=== PATIENT | female | born 1970 | race Caucasian/White ===

== ENCOUNTER 2019-05-04 05:24 | Emergency (ER) | payer OTHER, SELFPAY ==
[2019-05-04 05:36] VITALS: BP 131/88; PULSE 84; RESP 18; TEMP 36.8; O2SAT 99; BMI 21.9
--- NOTE | 2019-05-04 05:44 | W.ED.HA ---
HPI - Headache General: Chief Complaint: Headache Stated Complaint: HEAD ACHE Time Seen by Provider: 05/04/19 05:43 History of Present Illness: HPI Narrative: 49-year-old female presents with left-sided headache with photophobia photophobia and nausea. She has had migraines multiple times in the past this is similar to what she has had previously she usually uses Imitrex for migraine relief but it has not been relieving her headaches. Associated symptoms: Deny chest pain, fever(s), malaise, nausea, rash or vomiting Review of Systems Const: Denies: fever, chills, body aches, change in appetite, fatigue or malaise ENMT: Denies: throat pain, ear pain, nasal discharge or nasal congestion Card: Denies: chest pain, edema, shortness of breath on exertion or shortness of breath when lying down Resp: Denies: shortness of breath, productive cough or non-productive cough GI: Denies: abdominal pain, nausea, vomiting, vomiting blood, coffee grounds in vomit, diarrhea, constipation, bloating, blood in stool or black tarry stool : Denies: flank pain, difficulty urinating, painful urination, urinary frequency or urinary urgency Skin/Breast: Denies: rash or itching Neuro: Reports: headache PFSH ED PFSH: Social History Smoking and tobacco status: never smoked Physical Exam Const: COMMON NORMALS: no apparent distress GENERAL APPEARANCE: cooperative and comfortable ORIENTATION/CONSCIOUSNESS: Yes awake, Yes oriented to person, Yes oriented to place and Yes oriented to time HENMT: COMMON NORMALS: normocephalic, head/scalp atraumatic, hearing grossly normal bilaterally, external ears normal, EAC's normal, TM's normal bilaterally, nasal mucous membranes and turbinates normal, moist oral mucous membranes and oropharynx normal HEAD & SCALP: normocephalic and atraumatic NOSE: nasal mucous membranes and turbinates normal EXTERNAL EAR: Yes external ears normal EXTERNAL AUDITORY CANAL: EAC's normal TYMPANIC MEMBRANE: TM's normal bilaterally Eye: COMMON NORMALS: PERRL, EOMs intact bilaterally, conjunctivae normal and no scleral icterus CONJUNCTIVA: Yes conjunctivae normal PUPIL: Yes PERRL Neck/C-Spine: COMMON NORMALS: full ROM, no lymphadenopathy, supple and no JVD Lymph: LYMPHATIC: no lymphadenopathy noted and no lymphedema noted Resp: COMMON NORMALS: normal respiratory effort, no retractions, no use of accessory muscles and clear to auscultation bilaterally AUSCULTATION: clear to auscultation bilaterally Cardio: COMMON NORMALS: no JVD, regular rate, regular rhythm and no murmurs RATE: regular rate RHYTHM: regular rhythm GI: COMMON NORMALS: soft to palpation and no hepatosplenomegaly AUSCULTATION: Yes normoactive bowel sounds PALPATION: Yes soft, No tender, No guarding and Yes no hepatosplenomegaly Extremity: COMMON NORMALS: normal to inspection, normal capillary refill, no clubbing, cyanosis or edema, no calf tenderness and no pedal edema Neuro: SENSORIUM/ORIENTATION: Yes oriented to person, Yes oriented to place and Yes oriented to time Skin: COMMON NORMALS: no rashes or lesions noted GENERAL SKIN EXAM: no rashes or lesions noted Course ED course: Pt is improved. Will discharge home. Follow-up with primary care physician Vital Signs: Vital signs: Vital Signs Temperature 98.2 F 05/04/19 05:36 Pulse Rate 78 05/04/19 07:25 Respiratory Rate 16 05/04/19 07:25 Blood Pressure 118/85 05/04/19 07:25 Pulse Oximetry 99 05/04/19 07:25 Discharge Plan Discharge Patient Disposition: Home, Self-Care Clinical Impression: Migraine Condition: Stable Prescriptions: New hydrocodone-acetaminophen 5-325 mg tablet 1 tab PO Q6H PRN (Reason: pain) 10 Days Qty: 15 RF: 0 promethazine 25 mg tablet 25 mg PO Q6H PRN (Reason: nausea and vomiting) Qty: 20 RF: 0 No Action cyclobenzaprine 10 mg Tablet 10 mg PO TID PRN (Reason: Pain) RF: 0 Neurontin 300 mg Capsule 300 mg PO DAILY RF: 0 tramadol 100 mg Tablet Extended Release 24 Hr 100 mg PO DAILY RF: 0 Discharge Orders: Discharge Order (Routine); Ordered 05/04/19 Ordered By: Carl Whitt Referrals: Darwin Keenan MD [Family Provider] - Discharge Diet: Usual diet Discharge Activity: Increase activity as tolerated Stand Alone Forms: Work/School Release Discharge Date/Time: 05/04/19 07:25 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
[2019-05-04 06:13] VITALS: BP 131/88; PULSE 80; RESP 18; O2SAT 100
[2019-05-04] MEDS: ketorolac 30 mg/mL INJ IVP (06:25)
[2019-05-04] MEDS: metoclopramide 5 mg/mL SDV 2 mL 10 MG IVP (06:28)
[2019-05-04] MEDS: sodium chloride 0.9% 1,000 ML 999 ML IV (06:33)
[2019-05-04] MEDS: valproic acid inj 500 MG in sodium chloride 0.9% 50 ML 55 MG IV (06:34)
[2019-05-04 07:25] VITALS: BP 118/85; PULSE 78; RESP 16; O2SAT 99
== END 2019-05-04 07:25 | disposition home or self-care (01) ==
PROVIDERS: Emergency Provider Family Medicine; Family Provider Family Medicine
DX: G43.909 Migraine, unspecified, not intractable, without status migrainosus (principal)
CPT/HCPCS: 96365; 96366; 96374; 96375; 99282; 99283; J1885; J2765; J7030

== ENCOUNTER → 2019-11-24 11:48 | Outpatient (BNVA) | payer OTHER, SELFPAY | PROVIDERS: Family Provider Family Medicine; Visit Provider Internal Medicine | DX: Z20.828 Contact with and (suspected) exposure to other viral communicable diseases (principal) | CPT/HCPCS: 87635 ==

== ENCOUNTER → 2019-12-16 08:58 | Outpatient (BNVA) | payer OTHER, SELFPAY | PROVIDERS: Family Provider Family Medicine; Visit Provider Internal Medicine | DX: R53.83 Other fatigue (principal); R76.8 Other specified abnormal immunological findings in serum; D86.9 Sarcoidosis, unspecified; R21 Rash and other nonspecific skin eruption; Z11.59 Encounter for screening for other viral diseases | CPT/HCPCS: 99203; 99204 ==

== ENCOUNTER 2019-12-19 16:25 | Outpatient (CLI) | payer OTHER, SELFPAY ==
[2019-12-19 17:17] LABS: Complement C3 89 mg/dL (90-180); Creatine Phosphokinase 58 U/L (26-192); Magnesium 2.1 mg/dL (1.7-2.3); Phosphorus 3.7 mg/dL (2.5-4.5)
[2019-12-19 17:26] LABS: Estradiol. 121.5 pg/mL
[2019-12-19 17:56] LABS: Erythrocyte Sedimentation Rate 9 mm/hr (0-15)
[2019-12-19 19:42] LABS: Ferritin 181 ng/mL (15-150); Iron 50 ug/dL (37-145)
[2019-12-19 19:47] LABS: Cortisol Random 6.89 ug/mL (2.47-19.5); Hepatitis B Core AB, Total Non-Reactive (Nonreactive); Hepatitis B Surface Antigen Non-Reactive (Nonreactive); Hepatitis C Virus Antibody Non-Reactive (Nonreactive); Parathyroid Hormone 37.8 pg/mL (15-65)
[2019-12-19 19:58] LABS: Calcium 9.4 mg/dL (8.5-10.5)
[2019-12-21 06:48] LABS: PROTEIN, TOTAL 6.4 g/dL (6.1-8.1)
[2019-12-21 07:47] LABS: T3 Total 142 ng/dL (76-181)
[2019-12-21 09:48] LABS: COMPLEMENT COMPONENT C3C 99 mg/dL (83-193); COMPLEMENT COMPONENT C4C 16 mg/dL (15-57)
[2019-12-21 12:17] LABS: Cyclic Citrullinated Peptide <16 UNITS
[2019-12-21 13:17] LABS: COMPLEMENT, TOTAL (CH50) >60 U/mL (31-60)
[2019-12-21 13:48] LABS: ALBUMIN 4.1 g/dL (3.8-4.8); ALPHA 1 GLOBULIN 0.3 g/dL (0.2-0.3); ALPHA 2 GLOBULIN 0.6 g/dL (0.5-0.9); BETA 1 GLOBULIN 0.4 g/dL (0.4-0.6); BETA 2 GLOBULIN 0.2 g/dL (0.2-0.5); GAMMA GLOBULIN 0.8 g/dL (0.8-1.7)
[2019-12-21 17:46] LABS: THYROID PEROXIDASE ANTIBODIES 10 IU/mL (<9)
[2019-12-21 18:47] LABS: HLA-B27 NEGATIVE (NEGATIVE)
[2019-12-22 04:39] LABS: Adrenocorticotropic Hormone 18 pg/mL (6-50)
[2019-12-22 14:38] LABS: CENTROMERE B ANTIBODY <1.0 NEG AI (<1.0 NEG); JO-1 ANTIBODY <1.0 NEG AI (<1.0 NEG); RNP ANTIBODY <1.0 NEG AI (<1.0 NEG); SCL-70 ANTIBODY <1.0 NEG AI (<1.0 NEG); SJOGREN'S ANTIBODY (SS-A) <1.0 NEG AI (<1.0 NEG); SM ANTIBODY <1.0 NEG AI (<1.0 NEG)
[2019-12-23 14:32] LABS: ANA PATTERN Nuclear, Speckled; ANA SCREEN, IFA POSITIVE (NEGATIVE); ANA TITER 1:40 titer
[2019-12-23 19:03] LABS: Tissue Transglutaminase IgA Ab 1 U/mL; Tissue transglutaminase Ab.IgG 14 U/mL
[2019-12-25 16:02] LABS: Gliadin Ab.IgA 11 U (<20); Gliadin Ab.IgG 18 U (<20)
[2019-12-26 00:52] LABS: DNA AB (DS) CRITHIDIA,IFA NEGATIVE (NEGATIVE)
[2019-12-28 03:23] LABS: Immunoglobulin A 152 mg/dL (47-310)
== END 2019-12-19 16:26 | disposition home or self-care (01) ==
LOC: LAB 16:28
PROVIDERS: PCP Family Medicine; Visit Provider Internal Medicine
DX: R76.8 Other specified abnormal immunological findings in serum (principal); D86.9 Sarcoidosis, unspecified; Z51.81 Encounter for therapeutic drug level monitoring
CPT/HCPCS: 36415; 82024; 82310; 82533; 82550; 82670; 82728; 82784; 83516; 83540; 83735; 83970; 84100; 84155; 84165; 84480; 85651; 86160; 86704; 86803; 86812; 87340

== ENCOUNTER → 2020-01-13 11:00 | Outpatient (BNVA) | payer OTHER, SELFPAY | PROVIDERS: PCP Family Medicine; Visit Provider Internal Medicine | DX: R76.8 Other specified abnormal immunological findings in serum (principal); R53.83 Other fatigue; R21 Rash and other nonspecific skin eruption; M25.50 Pain in unspecified joint; Z79.899 Other long term (current) drug therapy; K90.0 Celiac disease | CPT/HCPCS: 99213; 99214 ==

== ENCOUNTER → 2020-04-10 11:20 | Outpatient (BNVA) | payer OTHER, SELFPAY | PROVIDERS: PCP Family Medicine; Visit Provider Internal Medicine | DX: R76.8 Other specified abnormal immunological findings in serum (principal); K90.0 Celiac disease; M25.50 Pain in unspecified joint; M81.0 Age-related osteoporosis without current pathological fracture; R53.83 Other fatigue; R51.9 Headache, unspecified; F48.8 Other specified nonpsychotic mental disorders; R33.9 Retention of urine, unspecified | CPT/HCPCS: 99214 ==

== ENCOUNTER 2020-04-13 07:42 | Outpatient (CLI) | payer OTHER, SELFPAY ==
[2020-04-13 08:33] LABS: Basophils % 0.4 %; Eosinophils # 0.1 10^3/uL (0.0-0.8); Eosinophils % 0.7 %; Hematocrit 44.4 % (37.0-47.0); Hemoglobin 14.6 g/dL (11.5-15.3); Lymphocytes # 1.3 10^3/uL (0.8-4.8); Lymphocytes % 18.7 %; Mean Corpuscular HGB Conc 32.9 g/dL (30.0-36.0); Mean Corpuscular Hemoglobin 30.4 pg (28.0-34.0); Mean Corpuscular Volume 92.5 fL (81-99); Mean Platelet Volume 10.1 fL (7.4-10.4); Monocytes # 0.4 10^3/uL (0.2-0.9); Monocytes % 5.9 %; Neutrophils # 5.11 10^3/uL (1.8-7.7); Nucleated Red Blood Cells % 0 %; Platelet Count 204 10^3/cmm (130-400); Red Cell Distribution Width 11.7 % (12.1-15.1); White Blood Count 6.9 10^3/uL (4.0-10.0)
[2020-04-13 08:41] LABS: Bilirubin Urine Neg (Negative); Blood Urine Neg (Negative); Glucose Urine UA Norm (Normal); Ketones Urine Negative (Negative); Leukocyte Esterase Urine Negative (Negative); Nitrate Urine Positive (Negative); Protein Urine Neg (Negative); Urine Appearance Hazy (CLEAR); Urine Color Yellow (Yellow); Urobilinogen Urine Norm (Negative); pH Urine 6 (5-7)
[2020-04-13 08:42] LABS: Add Urine Microscopic? YES
[2020-04-13 08:43] LABS: Add Urine Culture? No; Bacteria Urine 3+ /hpf; RBC Urine 0-4 /hpf (0-2); Squamous Epithelial Cell Urine 15-25 /hpf (0-5)
[2020-04-13 09:04] LABS: Alanine Aminotransferase 10 U/L (0-33); Albumin Level 4.7 g/dL (3.5-5.2); Alkaline Phosphatase 82 IU/L (35-105); Anion Gap 14.1 (5-19); Aspartate Amino Transferase 12 U/L (0-32); Blood Urea Nitrogen 11 mg/dL (6-20); C Reactive Protein 5.7 mg/L (0.0-4.9); Calcium 9.3 mg/dL (8.5-10.5); Carbon Dioxide 26 mmol/L (22-29); Chloride 102 mmol/L (98-107); Glomerular Filtration Rate 76.6 mL/min (90-130); Glucose 89 mg/dL (65-115); Osmolality Calculated 285 mOsm/kg (285-295); Potassium 4.1 mmol/L (3.5-5.1); Sodium 138 mmol/L (136-145); Total Bilirubin 0.5 mg/dL (0.15-1.2); Total Protein 7.7 g/dL (6.6-8.7)
[2020-04-13 09:31] LABS: Erythrocyte Sedimentation Rate 12 mm/hr (0-15)
[2020-04-13 10:46] LABS: Complement C3 116 mg/dL (90-180)
[2020-04-17 17:31] LABS: Vitamin B1(Thiamin) Plas/Ser 15 nmol/L (8-30)
[2020-04-18 00:08] LABS: Adrenocorticotropic Hormone 12 pg/mL (6-50)
== END 2020-04-13 07:43 | disposition home or self-care (01) ==
LOC: LAB 07:45
PROVIDERS: PCP Family Medicine; Visit Provider Internal Medicine
DX: R76.8 Other specified abnormal immunological findings in serum (principal)
CPT/HCPCS: 36415; 80053; 81001; 82024; 82533; 84425; 85025; 85651; 86140; 86160

== ENCOUNTER → 2020-09-19 14:43 | Outpatient (BNVA) | payer OTHER, SELFPAY | PROVIDERS: PCP Family Medicine; Referring Provider Family Medicine; Visit Provider Specialist | DX: R41.3 Other amnesia (principal); G43.711 Chronic migraine without aura, intractable, with status migrainosus; M79.7 Fibromyalgia | CPT/HCPCS: 99205 ==

== ENCOUNTER 2020-10-09 16:19 | Outpatient (CLI) | payer OTHER, SELFPAY ==
--- NOTE | 2020-10-09 16:45 | MR_ITS ---
WS: [id number] MRI HEAD WITHOUT CONTRAST TECHNIQUE: Sagittal T1, T2 axial, T2 axial FLAIR, axial and coronal T1 images, axial susceptibility w eighted imaging, axial diffusion weighted images, and coronal T2 images were obtained. CLINICAL INFORMATION: R51.9 - Headache, unspecified COMPARISON: None. FINDINGS: No evidence of restricted diffusion to suggest acute ischemia. Ventricular system and basal cisterns are patent. No suspicious intracranial signal abnormalities. Normal flores-white differentiation. No ev idence of mass or mass effect. Normal posterior fossa. Normal vascular flow voids at the skull base. No extra-axial fluid collection s. Small amount of fluid/mucosal thickening in the sphenoid sinus. Mastoid air cells and paranasal sinus es are otherwise well aerated. No hemosiderin on susceptibly weighted images. Normal optic chiasm and pituitary infundibulum. Slight prominence of the pituitary tissue which is otherwise normal in appearance. No suprasellar or asymme tric pituitary lesions. Recommend correlation with pituitary function studies. Temporal lobes and hippocampal formations are normal in appearance. Incidental minimal low-lying cere bellar tonsils measuring 2 to 3 mm below the foramen magnum. Normal fourth ventricle. No hydrocephalu s. MR/MR head wo con* [id number] IMPRESSION: 1. No evidence of restricted diffusion to suggest acute ischemia. 2. No suspicious intracanal signal abnormalities. Normal flores-white differenti ation. 3. Slightly prominent pituitary tissue although within normal limits which is most likely benign. No asymmetric or suprasellar pituitary lesions. Recommend c orrelation with pituitary function studies. 4. Minimal incidental low-lying cerebellar tonsils. Normal fourth ventricle. 5. No hemosiderin on susceptibly weighted images. 6. Tiny amount of fluid/mucosal thickening in sphenoid sinus.
== END 2020-10-09 16:20 | disposition home or self-care (01) ==
LOC: RADSHAW 16:24
PROVIDERS: PCP Family Medicine; Visit Provider Specialist
DX: R51.9 Headache, unspecified (principal)
CPT/HCPCS: 70551

== ENCOUNTER → 2020-10-22 10:42 | Outpatient (BNVA) | payer OTHER, SELFPAY | PROVIDERS: PCP Family Medicine; Visit Provider Specialist | DX: G43.711 Chronic migraine without aura, intractable, with status migrainosus (principal) | CPT/HCPCS: 99213; 99214 ==

== ENCOUNTER 2020-11-01 10:09 | Emergency (ER) | payer OTHER, SELFPAY ==
[2020-11-01 10:22] VITALS: BP 134/94; PULSE 76; RESP 18; O2SAT 100; BMI 23.5
[2020-11-01 10:34] VITALS: BP 134/94; PULSE 77; RESP 16; O2SAT 100
[2020-11-01] MEDS: sodium chloride 0.9% 1,000 ML 30 ML IV (10:53)
[2020-11-01] MEDS: diphenhydrAMINE 50 mg/mL SDV 1mL IVP (10:55)
[2020-11-01] MEDS: ketorolac 30 mg/mL INJ IVP (10:57)
[2020-11-01] MEDS: metoclopramide 5 mg/mL SDV 2 mL 10 MG IVP (10:58)
[2020-11-01 10:59] LABS: Basophils % 0.5 %; Eosinophils % 0.7 %; Hematocrit 40.6 % (37.0-47.0); Hemoglobin 13.2 g/dL (11.5-15.3); Lymphocytes # 1.2 10^3/uL (0.8-4.8); Lymphocytes % 19.7 %; Mean Corpuscular HGB Conc 32.5 g/dL (30.0-36.0); Mean Corpuscular Hemoglobin 31.4 pg (28.0-34.0); Mean Corpuscular Volume 96.7 fl (81-99); Mean Platelet Volume 11.1 fL (7.4-10.4); Monocytes # 0.3 10^3/uL (0.2-0.9); Monocytes % 5.7 %; Neutrophils # 4.33 10^3/uL (1.8-7.7); Neutrophils % 72.9 %; Nucleated Red Blood Cells % 0 %; Platelet Count 154 10^3/cmm (130-400); Red Cell Distribution Width 12.3 % (12.1-15.1); White Blood Count 5.9 10^3/uL (4.0-10.0)
--- NOTE | 2020-11-01 11:16 | ED_ITS ---
HPI - General Adult General: Chief complaint: Headache Stated complaint: Headache, dizziness Time Seen by Provider: 11/01/20 10:20 History of Present Illness: HPI narrative: HPI: [50]yo patient w hx of chronic migraine headache presenting to the ED with increased frequency of headache x 3 months. Describes the headache as pulsatile or cramping on the L side of the head. Patient reports headache was gradual in onset and has been having daily cramping episodes lasting for a few hours at a time. Headache not asosciated N/V. +mild photophobia, generalized weakness, and inability to concentrate on tasks. Denies fever/chill, hx of immunocompromise, HIV, or transplant. The patient denies any focal neurological weakness, vision blindness, diplopia, or eye pain, hoarseness of voice or facial weakness. The patient has had decreased PO intake since the onset of headache symptoms. No family hx of subarachnoid hemorrhage. Denies recent trauma to the head. Pain is unrelieved with OTC medication, including ibuprofen or Tylenol. Per chart review, patient had a MRI on 10/09/2020 which showed no focal findings. She follows with Dr. Coffey. Since her MRI, her headache has not changed in consistency, frequency, or intensity. No complaints of chest pain, shortness of breath, palpitations, light-headedness/vertigo/syncope, abdominal pain, or complaints today. Onset: 3 months ago Duration: ongoing Location: home Severity: moderate Review of Systems Narrative: Constitutional: No fever, no chills. HEENT: +blurriness of vision CV: No chest pain, no palpitations PULM: No productive cough, no dyspnea. GI: No abdominal pain, +N/+V/-D. : No Dysuria MSKEL: No muscle pain SKIN: No new rashes, no lesions. NEURO: + headache, no focal weakness. HEME: No visible bruises PSYCH: Normal mood PFSH ED PFSH: Social History Smoking and tobacco status: never smoked Alcohol intake: never History of recent travel: No Physical Exam Narrative: EXAM NARRATIVE: Head: Atraumatic Eyes: PERRL, conjunctiva without injection, eyes tracking ENT: Mucous membrane moist NECK: Supple without lymphadenopathy, no nuchal rigidity LUNGS: LCTAB CV: RRR ABDOMEN: Soft, nontender in all quadrants, no guarding or rebound tenderness, no CVA or flank tenderness bilaterally EXTREMITY: Normal ROM SKIN: No rash or erythema through the whole body NEURO: Mental status: A/Ox3 CN II-XII tested and intact. Sensation intact to sharp/dull differentiation in all extremities. Motor: Normal tone and bulk. No abnormal movements appreciated. No pronator drift. Strength tested and 5/5 in bilateral wrist flexion/extension, elbow flexion/extension, shoulder abduction, straight leg raise, knee flexion/extension, ankle dorsiflexion/plantarflexion. Patient ambulates with a steady gait. Coordination: Finger to nose and heel to levy testing intact bilaterally. PSYCH: Cooperative mood and affect Course Vital Signs: Vital signs: Vital Signs Pulse Rate 77 11/01/20 10:34 Respiratory Rate 16 11/01/20 10:34 Blood Pressure 134/94 11/01/20 11:51 Pulse Oximetry 98 11/01/20 11:51 MDM - General Adult MDM Narrative: Medical decision making narrative: [50] yo w/ hx of chronic headache presents with moderate to severe headache. - Fever, -Nausea/-Vomiting, -Neck pain. -Trauma. Afebrile, HDS stable. No focal neurological symptoms. Neuro exam is non-focal. Pt is nontoxic. Based on history and normal neurological exam I do not suspect for intracranial tumor, intracranial bleed, subdural/epidural hematoma, meningitis or intracranial abscess, encephalopathy or encephalitis, temporal arteritis, glaucoma, [place] poisoning. Presentation most likely benign headache. Intervention today: IVF, Reglan, Benadryl, Toradol, and Magnesium Sulfate [12:30pm] On reassessment, the patient reports the headache is significantly improved with treatment. Neuro exam intact. Patient is able to ambulate and tolerate PO in the ED. Patient declined any outpatient medicine. Laboratory evaluation showed that patient has mild electrolyte abnormality including mild hyponatremia, hypokalemia, and hypocalcemia. I discussed these findings with patient which may exacerbate her headache symptoms. Unlikely to be SAH, mass, or brain bleed given duration of symptoms and recent workup. Patient aware of the need to follow-up with outpatient neurologist Dr. Coffey for further evaluation of her electrolyte abnormality. I have offered electrolyte replenishment, however patient declined at this time, citing strong desire to go home and rest. Disposition: Discharge home with strict return precautions and instructions for prompt primary care follow up. Given referral for Neurology should any headache recur. Given return instructions for any focal deficit, fever/chill, neck pain or any new or concerning symptoms. Lab Data: Labs: Lab Results 11/01/20 11/01/20 11/01/20 Range/Units 10:45 10:45 11:38 WBC 5.9 (4.0-10.0) 10^3/ uL RBC 4.20 (4.1-5.3) 10^6/u L Hgb 13.2 (11.5-15.3) g/dL Hct 40.6 (37.0-47.0) % MCV 96.7 (81-99) fl MCH 31.4 (28.0-34.0) pg MCHC 32.5 (30.0-36.0) g/dL RDW 12.3 (12.1-15.1) % Plt Count 154 (130-400) 10^3/c mm MPV 11.1 H (7.4-10.4) fL Neut % (Auto) 72.9 % Lymph % (Auto) 19.7 % [place] % (Auto) 5.7 % Eos % (Auto) 0.7 % Baso % (Auto) 0.5 % Neut # (Auto) 4.33 (1.8-7.7) 10^3/u L Lymph # (Auto) 1.2 (0.8-4.8) 10^3/u L [place] # (Auto) 0.3 (0.2-0.9) 10^3/u L Eos # (Auto) 0.0 (0.0-0.8) 10^3/u L Baso # (Auto) 0.0 (0.0-0.1) 10^3/u L Nucleated RBC % (a uto) 0 % Nucleated RBCs # 0.0 /100WBC Sodium Cancelled 134 L Potassium Cancelled 3.3 L Chloride Cancelled 100 Carbon Dioxide Cancelled 20 L Anion Gap Cancelled 17.3 BUN Cancelled 5 L Creatinine Cancelled 0.5 GFR Calculation Cancelled 131.7 H Glucose Cancelled 75 Calculated Osmolal ity Cancelled 274 L Calcium Cancelled 8.4 L Discharge Plan Discharge Patient Disposition: Home Clinical Impression: Headache Condition: Stable Prescriptions: No Action cyclobenzaprine 10 mg tablet 10 mg PO BEDTIME RF: 0 sumatriptan succinate [Imitrex] 100 mg tablet See Rx Instructions PO .COMPLEX Qty: 9 RF: 2 multivitamin Tablet 1 tab PO DAILY RF: 0 tramadol 50 mg tablet 100 mg PO BEDTIME RF: 0 alprazolam 0.25 mg tablet 0.25 mg PO BID PRN (Reason: Anxiety) RF: 0 gabapentin 300 mg capsule 300 mg PO BEDTIME RF: 0 Requip 0.25 mg tablet 0.25 - 0.5 mg PO BEDTIME RF: 0 Aimovig Autoinjector 140 mg/mL auto-injector 140 mg SUBCUT Q30D RF: 0 Discharge Orders: Discharge ED (Routine); Ordered 11/01/20 Ordered By: Linh Bucio Referrals: Darwin Keenan MD [Primary Care Provider] - Discharge Diet: Advance as tolerated Discharge Activity: Resume usual activity Patient Instructions: Headache Activity Restrictions/Additional Instructions: Follow-up with Dr. Coffey for evaluation of your headache symptoms. Come back to the emergency room you have any weakness in her arms or legs, if any fever or chills, if you have any neck pain, or any new or concerning complaints. 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
[2020-11-01 11:51] VITALS: BP 134/94; O2SAT 98
[2020-11-01 12:11] LABS: Blood Urea Nitrogen 5 mg/dL (6-20); Calcium 8.4 mg/dL (8.5-10.5); Carbon Dioxide 20 mmol/L (22-29); Chloride 100 mmol/L (98-107); Glomerular Filtration Rate 131.7 mL/min (90-130); Glucose 75 mg/dL (65-115); Osmolality Calculated 274 mOsm/kg (285-295); Sodium 134 mmol/L (136-145)
[2020-11-01 12:21] LABS: Anion Gap 17.3 (5-19); Potassium 3.3 mmol/L (3.5-5.1)
== END 2020-11-01 11:49 | disposition home or self-care (01) ==
PROVIDERS: Emergency Provider Emergency Medicine; PCP Family Medicine
DX: R51.9 Headache, unspecified (principal)
CPT/HCPCS: 36415; 80048; 85025; 96361; 96374; 96375; 99283; J1200; J1885; J2765; J7030

== ENCOUNTER → 2021-01-29 15:16 | Outpatient (BNVA) | payer OTHER, SELFPAY | PROVIDERS: PCP Family Medicine; Visit Provider Specialist | DX: G43.711 Chronic migraine without aura, intractable, with status migrainosus (principal) | CPT/HCPCS: 99213 ==

== ENCOUNTER 2022-12-11 09:13 | Outpatient (CLI) | payer OTHER, SELFPAY ==
--- NOTE | 2022-12-11 09:19 | MR_ITS ---
WS: [id number] MRI LUMBAR SPINE NONCONTRAST TECHNIQUE: Sagittal T1, T2 and STIR imaging. Axial T1 and T2 imaging. CLINICAL INFORMATION: LUMBOSACRAL RADICULOPATHY COMPARISON: MRI 2019 FINDINGS: Mild lumbar curve. No acute compression. No high-grade central canal stenosis. Mild disc bulging L3-L 4 and L4-L5. Slight anterolisthesis C5 on C6 and C6 on C7 in the cervical spine. L1-L2: Normal. L2-L3: Normal. L3-L4: Mild annular bulging. Slight effacement of ventral thecal sac. Mild facet arthropathy. Spinal canal and foramen are patent. L4-L5: Mild annular bulging. Slight effacement of the ventral thecal sac. Mild arthropathy. Spinal ca nal and foramen are patent. L5-S1: No significant disc bulging. Spinal canal and foramen are patent. Mild facet arthropathy. Visualized pelvic bony structures: Normal. Paravertebral soft tissues: Normal. IMPRESSION: 1. Mild lumbar curve. No acute compression. No high-grade central canal stenosis. 2. Mild annular bulging L3-4 with slight effacement of the ventral thecal sac. Slight encroachment o n the traversing RIGHT L4 nerve root appears progressed compared to previous. 3. Mild annular bulging L4-5 with slight encroachment on the traversing RIGHT greater than LEFT L5 n erve roots appears unchanged. 4. Mild facet arthropathy L3-L5.
== END 2022-12-11 09:14 | disposition home or self-care (01) ==
LOC: RAD 09:14
PROVIDERS: PCP Electrodiagnostic Medicine; Visit Provider Electrodiagnostic Medicine
DX: M54.17 Radiculopathy, lumbosacral region (principal); M51.36 Other intervertebral disc degeneration, lumbar region; M47.816 Spondylosis without myelopathy or radiculopathy, lumbar region
CPT/HCPCS: 72148

== ENCOUNTER → 2023-04-20 11:20 | Outpatient (BNVA) | payer OTHER, SELFPAY | PROVIDERS: PCP Electrodiagnostic Medicine; Visit Provider Anesthesiology Pain Medicine | DX: S39.92XA Unspecified injury of lower back, initial encounter (principal); W10.9XXA Fall (on) (from) unspecified stairs and steps, initial encounter | CPT/HCPCS: 72170 ==

== ENCOUNTER 2023-08-03 04:55 | Emergency (ER) | payer OTHER, SELFPAY ==
[2023-08-03 04:58] VITALS: BP 140/92; PULSE 80; RESP 16; TEMP 35.9; O2SAT 100; BMI 22.7
[2023-08-03 05:15] LABS: Bacteria Urine 2+ /hpf; Bilirubin Urine 1+ (Negative); Blood Urine Neg (Negative); Glucose Urine UA Norm (Normal); Ketones Urine 1+ (Negative); Leukocyte Esterase Urine Trace (Negative); Mucus Urine TRACE /hpf; Nitrate Urine Negative (Negative); Protein Urine Trace (Negative); RBC Urine 0-4 /hpf (0-2); Specific Gravity, Urine 1.025 (1.005-1.030); Squamous Epithelial Cell Urine 15-25 /hpf (0-5); Urine Appearance Cloudy (CLEAR); Urine Color Yellow (Yellow); Urobilinogen Urine Neg (Negative); pH Urine 5 (5-7)
--- NOTE | 2023-08-03 05:18 | ED_ITS ---
HPI - Female Genitourinary 2 General: Chief complaint: Urogenital-Female Stated complaint: kidney pain.. believes uti Time Seen by Provider: 08/03/23 05:17 History of Present Illness: year old female with a history of frequent urinary tract infections. She also has a history of kidney stones. She presents with ongoing left flank pain for about three weeks or so. She first treated herself with ciprofloxacin that she states was old. She did not seem to improve significantly. She saw her doctor last week, and was placed on bactrim with some transient improvement, although her symptoms have returned. She denies fever currently. She has some nausea, but no vomiting. Associated symptoms: Reports nausea Review of Systems 2 Card: Denies: chest pain Resp: Denies: dyspnea, productive cough or non-productive cough GI: Reports: nausea : Reports: flank pain, dysuria and urinary frequency PFSH ED 2 PFSH: Social History Smoking and tobacco/nicotine status: never used tobacco/nicotine Alcohol intake: never Substance/Drug Use: never Physical Exam 2 Const: COMMON NORMALS: no acute distress GENERAL APPEARANCE: cooperative; not ill appearing and not frail appearing HENMT: COMMON NORMALS: normocephalic, atraumatic and Normal external nose present HEAD & SCALP: normocephalic and atraumatic FACE & SINUS: normal facial exam and face symmetric NOSE: Normal external nose present Eye: COMMON NORMALS: Equal, round and reactive pupils present and EOMs intact bilaterally PUPIL: Yes Equal, round and reactive pupils present Neck/C-Spine: GENERAL: Yes trachea midline Chest: CHEST: Yes Symmetrical chest wall rise Resp: COMMON NORMALS: normal respiratory effort, No retractions, No use of accessory muscles and clear to auscultation bilaterally AUSCULTATION: clear to auscultation bilaterally Cardio: COMMON NORMALS: regular rate and regular rhythm RATE: regular rate RHYTHM: regular rhythm GI: COMMON NORMALS: Normal to inspection, nondistended, normoactive bowel sounds present PALPATION: Yes Tenderness to palpation present (GI) Details: LLQ Extremity: COMMON NORMALS: no pedal edema Neuro: ALESSIA COMA SCALE: document GCS findings Alessia coma scale eye opening: Spontaneous [place] coma scale verbal response: Orientated [place] coma scale motor response: Obey commands Alessia coma scale total score: 15 S ENSORY EXAM: Yes extremities (intact) Psych: COMMON NORMALS: speech normal SPEECH: Yes normal speech Skin: COMMON NORMALS: no rashes or lesions noted GENERAL SKIN EXAM: no rashes or lesions noted Course 2 Vital Signs: Vital signs: Vital Signs Temperature 96.7 F L 08/03/23 04:58 Pulse Rate 81 08/03/23 07:40 Respiratory Rate 16 08/03/23 04:58 Blood Pressure 136/94 08/03/23 07:40 Pulse Oximetry 100 08/03/23 07:40 Oxygen Delivery Me thod Room Air 08/03/23 04:58 MDM - Female Medical Decision Making CBC is normal. BMP is not remarkable. CRP is 3. No CT findings suggestive of pyelonephritis or stone. UA reveals a likely partially treated UTI. she has constipation as well. OTC treatment for this. ABx for UTI. given IV fluid and abx here. close outpt fu with repeat UA later this week. return for worsening symptoms. Lab Data 08/03/23 05:30 08/03/23 05:30 Radiology Impressions Abdomen/Pelvis CT 08/03/23 05:21 IMPRESSION: No acute findings. Bilateral nonobstructing renal calculi. Laboratory Results WBC 5.16 10^3/uL (3.29-11.43) 08/03/23 05:30 RBC 4.36 10^6/uL (3.85-5.65) 08/03/23 05:30 Hgb 13.50 g/dL (11.27-16.99) 08/03/23 05:30 Hct 41.0 % (36-47) 08/03/23 05:30 MCV 94.0 fl (85-98) 08/03/23 05:30 MCH 31.0 pg (27-33) 08/03/23 05:30 MCHC 32.9 g/dL (30-55) 08/03/23 05:30 RDW 12.1 % (12.1-15.1) 08/03/23 05:30 Plt Count 175 10^3/cmm (157-399) 08/03/23 05:30 MPV 10.6 fL (7.4-10.4) H 08/03/23 05:30 Neut % (Auto) 71.6 % 08/03/23 05:30 Lymph % (Auto) 19.8 % 08/03/23 05:30 [place] % (Auto) 7.8 % 08/03/23 05:30 Eos % (Auto) 0.4 % 08/03/23 05:30 Baso % (Auto) 0.2 % 08/03/23 05:30 Neut # (Auto) 3.70 10^3/uL (1.8-7.7) 08/03/23 05:30 Lymph # (Auto) 1.0 10^3/uL (0.8-4.8) 08/03/23 05:30 [place] # (Auto) 0.4 10^3/uL (0.2-0.9) 08/03/23 05:30 Eos # (Auto) 0.0 10^3/uL (0.0-0.8) 08/03/23 05:30 Baso # (Auto) 0.0 10^3/uL (0.0-0.1) 08/03/23 05:30 Nucleated RBC % (auto) 0 % 08/03/23 05:30 Nucleated RBCs # 0.0 /100WBC 08/03/23 05:30 Sodium 135 mmol/L (136-145) L 08/03/23 05:30 Potassium 4.1 mmol/L (3.5-5.1) 08/03/23 05:30 Chloride 103 mmol/L (98-107) 08/03/23 05:30 Carbon Dioxide 21 mmol/L (22-29) L 08/03/23 05:30 Anion Gap 15.1 (5-19) 08/03/23 05:30 BUN 19 mg/dL (6-20) 08/03/23 05:30 Creatinine 0.9 mg/dL (0.5-0.9) 08/03/23 05:30 GFR Calculation 66.0 mL/min (90-130) L 08/03/23 05:30 Glucose 102 mg/dL (65-115) 08/03/23 05:30 Calculated Osmolality 282 mOsm/kg (285-295) L 08/03/23 05:30 Calcium 8.9 mg/dL (8.5-10.5) 08/03/23 05:30 Total Bilirubin 0.3 mg/dL (0.15-1.2) 08/03/23 05:30 AST 14 U/L (0-32) 08/03/23 05:30 ALT 11 U/L (0-33) 08/03/23 05:30 Alkaline Phosphatase 64 U/L (35-105) 08/03/23 05:30 C-Reactive Protein 3.0 mg/L (0.0-4.9) 08/03/23 05:30 Total Protein 6.6 g/dL (6.6-8.7) 08/03/23 05:30 Albumin 4.2 g/dL (3.5-5.2) 08/03/23 05:30 Globulin 2.4 g/dL (1.3-4.6) 08/03/23 05:30 Lipase 50 U/L (13-60) 08/03/23 05:30 HCG, Qual Negative (Negative) 08/03/23 05:07 Urine Color Yellow (Yellow) 08/03/23 05:02 Urine Appearance Cloudy (CLEAR) A 08/03/23 05:02 Urine pH 5 (5-7) 08/03/23 05:02 Ur Specific [place] 1.025 (1.005-1.030) 08/03/23 05:02 Urine Protein Trace (Negative) 08/03/23 05:02 Urine Glucose (UA) Norm (Normal) 08/03/23 05:02 Urine Ketones 1+ (Negative) H 08/03/23 05:02 Urine Blood Neg (Negative) 08/03/23 05:02 Urine Nitrate Negative (Negative) 08/03/23 05:02 Urine Bilirubin 1+ (Negative) H 08/03/23 05:02 Urine Urobilinogen Neg mg/dL (Negative) 08/03/23 05:02 Ur Leukocyte Esterase Trace (Negative) H 08/03/23 05:02 Urine RBC 0-4 /hpf (0-2) H 08/03/23 05:02 Urine WBC 5-10 /hpf (0-5) H 08/03/23 05:02 Ur Squamous Epith Cells 15-25 /hpf (0-5) H 08/03/23 05:02 Amorphous Sediment Not Reportable 08/03/23 05:02 Urine Bacteria 2+ /hpf (NONE) H 08/03/23 05:02 Urine Mucus Trace /hpf 08/03/23 05:02 All radiology interpretation(s) finalized by discharge Discharge Plan Discharge Patient Disposition: Home Clinical Impression: Urinary tract infection, Constipation in female Condition: Stable Prescriptions: New cefdinir 300 mg capsule 300 mg PO BID Qty: 14 0RF No Action hydrocodone-acetaminophen 5-325 mg tablet 1 tab PO BID PRN amitriptyline 50 mg tablet 50 mg PO DAILY sumatriptan succinate 100 mg tablet See Rx Instructions PO .COMPLEX Qty: 10 3RF Rx Instructions: take 1 tab at onset of headache; if no relief, may repeat 1 tab after at least 2 hrs; max = 2 tabs/24 hrs PO cyclobenzaprine 10 mg tablet See Rx Instructions .ROUTE .COMPLEX Qty: 90 0RF Dose Instruction: TAKE ONE TABLET BY MOUTH every EIGHT hours occasionally NEEDED FOR muscle SPASMS Rx Instructions: TAKE ONE TABLET BY MOUTH every EIGHT hours occasionally NEEDED FOR muscle SPASMS alprazolam 0.25 mg tablet 0.25 mg PO BID PRN (Reason: anxiety) Qty: 30 2RF multivitamin Tablet 1 tab PO DAILY tramadol 50 mg tablet 100 mg PO BEDTIME gabapentin 300 mg capsule 300 mg PO BEDTIME Discharge Orders: Discharge ED (Routine); Ordered 08/03/23 Ordered By: Cong Adan Referrals: Alonso Andrews, [Primary Care Provider] - 4-7 days Patient Instructions: Constipation (ED), Urinary Tract Infection in Women (ED), Opioid Safety, Pain Management Activity Restrictions/Additional Instructions: Antibiotics as directed. Return to the emergency room for vomiting liquids or medications, fever despite 2-3 more doses of antibiotics, worsening pain, any other concerning symptoms. See your doctor later this week. Your urine should be retested to ensure you are clearing your infection. 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
--- NOTE | 2023-08-03 05:21 | CTR_ITS ---
PROCEDURE INFORMATION: Exam: CT Abdomen And Pelvis Without Contrast Exam date and time: 08/03/2023 5:34 AM Age: 53 years old Clinical indication: Abdominal pain; Prior surgery; Surgery date: 6+ months; Surgery type: Hysterectomy; Patient HX: C/O left flank pain with dysuria. History of UTI two weeks ago. TECHNIQUE: Imaging protocol: Computed tomography of the abdomen and pelvis without contrast. Radiation optimization: All CT scans at this facility use at least one of these dose optimization techniques: automated exposure control; mA and/or kV adjustment per patient size (includes targeted exams where dose is matched to clinical indication); or iterative reconstruction. COMPARISON: CR XR pelvis 1-2V* [id number] 04/20/2023 11:27 AM RADIATION DOSE METRICS: Total DLP (mGy-cm): 378.58 FINDINGS: Liver: Normal. No mass. Gallbladder and bile ducts: Normal. No calcified stones. No ductal dilation. Pancreas: Normal. No ductal dilation. Spleen: Normal. No splenomegaly. Adrenal glands: Normal. No mass. Kidneys and ureters: Bilateral nonobstructing renal calculi. Stomach and bowel: There is a large amount of colonic fecal material suggesting constipation. Appendix: No evidence of appendicitis. Intraperitoneal space: Unremarkable. No free air. No significant fluid collection. Vasculature: Unremarkable. No abdominal aortic aneurysm. Lymph nodes: Unremarkable. No enlarged lymph nodes. Urinary bladder: Unremarkable as visualized. Reproductive: Unremarkable as visualized. Bones/joints: Unremarkable. No acute fracture. Soft tissues: Unremarkable. CT/CT kidney stone [id number] IMPRESSION: No acute findings. Bilateral nonobstructing renal calculi.
[2023-08-03 05:31] LABS: HCG Qualitative Urine. Negative (Negative)
[2023-08-03 05:34] LABS: Basophils % 0.2 %; Eosinophils % 0.4 %; Lymphocytes % 19.8 %; Mean Corpuscular HGB Conc 32.9 g/dL (30-55); Mean Platelet Volume 10.6 fL (7.4-10.4); Monocytes # 0.4 10^3/uL (0.2-0.9); Monocytes % 7.8 %; Neutrophils % 71.6 %; Nucleated Red Blood Cells % 0 %; Platelet Count 175 10^3/cmm (157-399); Red Blood Count 4.36 10^6/uL (3.85-5.65); Red Cell Distribution Width 12.1 % (12.1-15.1); White Blood Count 5.16 10^3/uL (3.29-11.43)
[2023-08-03 05:51] LABS: Alanine Aminotransferase 11 U/L (0-33); Albumin Level 4.2 g/dL (3.5-5.2); Alkaline Phosphatase 64 U/L (35-105); Anion Gap 15.1 (5-19); Aspartate Amino Transferase 14 U/L (0-32); Blood Urea Nitrogen 19 mg/dL (6-20); Calcium 8.9 mg/dL (8.5-10.5); Carbon Dioxide 21 mmol/L (22-29); Chloride 103 mmol/L (98-107); Globulin 2.4 g/dL (1.3-4.6); Glucose 102 mg/dL (65-115); Lipase 50 U/L (13-60); Osmolality Calculated 282 mOsm/kg (285-295); Potassium 4.1 mmol/L (3.5-5.1); Sodium 135 mmol/L (136-145); Total Bilirubin 0.3 mg/dL (0.15-1.2); Total Protein 6.6 g/dL (6.6-8.7)
[2023-08-03] MEDS: sodium chloride 0.9% 1,000 ML 999 ML IV (05:52)
[2023-08-03] MEDS: cefTRIAXone 1,000 MG in sodium chloride 0.9% (plus) 50 ML 100 MG IV (07:00)
[2023-08-03 07:40] VITALS: BP 136/94; PULSE 81; O2SAT 100
== END 2023-08-03 07:41 | disposition home or self-care (01) ==
PROVIDERS: Emergency Provider Emergency Medicine; PCP Electrodiagnostic Medicine
DX: N39.0 Urinary tract infection, site not specified (principal); K59.00 Constipation, unspecified
CPT/HCPCS: 36415; 74176; 80053; 81001; 81025; 83690; 85025; 86140; 96374; 99285; J0696; J7030

== ENCOUNTER → 2023-12-10 10:43 | Outpatient (BNVA) | payer OTHER, SELFPAY | PROVIDERS: PCP Electrodiagnostic Medicine; Visit Provider Internal Medicine Rheumatology | DX: Z79.899 Other long term (current) drug therapy (principal) | CPT/HCPCS: 36415; 85025; 85651 ==

== ENCOUNTER 2023-12-15 13:37 | Outpatient (CLI) | payer OTHER, SELFPAY ==
--- NOTE | 2023-12-15 14:00 | XR_ITS ---
WS: [id number] DEXA (DUAL ENERGY X-RAY ABSORPTIOMETRY) Bone mineral density was performed using a [employer] machine. HISTORY: M81.0 - Age-related osteoporosis without current patholog... COMPARISON: 12/14/2018 Lumbar spine BMD (L1-L4): 0.790 g/cm2 T score: -3.3 Z score: -2.6 Total hip BMD: Left: 0.773 g/cm2. T score: -1.9 Z score: -1.2 Right: 0.854 g/cm2. T score: -1.2 Z score: -0.6 10 year probability of a major osteoporotic fracture is 11.0%. Compared to the prior study from 12/14/2018. Lumbar spine bone mineral density has decreased by 9.7%. Bilateral hips bone mineral density has increased by 0.5%. XR/XR DEXA axial skeleton* [id number] IMPRESSION: OSTEOPOROSIS based upon the WHO classification for females. Significant decrease in bone mineral density within the lumbar spine since the prior exam. No significant change of bone mineral density in the hips.
== END 2023-12-15 13:38 | disposition home or self-care (01) ==
PROVIDERS: PCP Electrodiagnostic Medicine; Visit Provider Internal Medicine Rheumatology
DX: Z13.820 Encounter for screening for osteoporosis (principal); M81.0 Age-related osteoporosis without current pathological fracture
CPT/HCPCS: 77080

== ENCOUNTER 2023-12-31 11:16 | Outpatient (CLI) | payer OTHER, SELFPAY ==
[2023-12-31 12:45] LABS: 25 Hydroxy Vitamin D 36 ng/mL (30-100); Alanine Aminotransferase 12 U/L (0-33); Albumin Level 4.3 g/dL (3.5-5.2); Alkaline Phosphatase 73 U/L (35-105); Aspartate Amino Transferase 13 U/L (0-32); Globulin 2.1 g/dL (1.3-4.6); Glomerular Filtration Rate 88.2 mL/min (90-130); Thyroid Stimulating Hormone 1.62 uIU/mL (0.27-4.20); Total Bilirubin 0.2 mg/dL (0.15-1.2); Total Protein 6.4 g/dL (6.6-8.7)
[2023-12-31 13:12] LABS: Free T4 Free Thyroxine 0.94 ng/dL (0.82-1.77)
== END 2023-12-31 11:17 | disposition home or self-care (01) ==
PROVIDERS: PCP Electrodiagnostic Medicine; Visit Provider Internal Medicine Rheumatology
DX: Z79.899 Other long term (current) drug therapy (principal)
CPT/HCPCS: 36415; 80076; 82306; 82565; 84439; 84443; 86140

== ENCOUNTER → 2024-01-05 08:21 | Outpatient (BNVA) | payer OTHER, SELFPAY | PROVIDERS: PCP Electrodiagnostic Medicine; Visit Provider Orthopaedic Surgery | DX: M54.9 Dorsalgia, unspecified (principal) | CPT/HCPCS: 72110 ==

== ENCOUNTER 2024-02-15 14:37 | Oncology outpatient (recurring) (ONCR) | payer OTHER, SELFPAY ==
[2024-02-15 14:59] VITALS: PULSE 70; RESP 17; TEMP 36.6; O2SAT 98
[2024-02-15 15:42] LABS: Basophils % 0.4 %; Eosinophils # 0.1 10^3/uL (0.0-0.8); Eosinophils % 1.5 %; Hematocrit 39.8 % (36-47); Lymphocytes # 1.6 10^3/uL (0.8-4.8); Lymphocytes % 22.1 %; Mean Corpuscular HGB Conc 34.2 g/dL (30-55); Mean Corpuscular Hemoglobin 30.8 pg (27-33); Mean Corpuscular Volume 90.2 fl (85-98); Mean Platelet Volume 10.4 fL (7.4-10.4); Monocytes # 0.4 10^3/uL (0.2-0.9); Monocytes % 5.5 %; Neutrophils # 5.17 10^3/uL (1.8-7.7); Nucleated Red Blood Cells % 0 %; Platelet Count 266 10^3/cmm (157-399); Red Blood Count 4.41 10^6/uL (3.85-5.65); Red Cell Distribution Width 11.7 % (12.1-15.1); White Blood Count 7.39 10^3/uL (3.29-11.43)
[2024-02-15 16:13] LABS: Alanine Aminotransferase 10 U/L (0-33); Albumin Level 4.1 g/dL (3.5-5.2); Alkaline Phosphatase 77 U/L (35-105); Aspartate Amino Transferase 12 U/L (0-32); Calcium 9.3 mg/dL (8.5-10.5); Globulin 2.6 g/dL (1.3-4.6); Glomerular Filtration Rate 88.2 mL/min (90-130); Total Bilirubin 0.2 mg/dL (0.15-1.2); Total Protein 6.7 g/dL (6.6-8.7)
[2024-02-15] MEDS: zoledronic acid 5 MG in empty flexible container 1 EACH 400 MG IV (16:19)
[2024-02-15 16:22] VITALS: BP 127/79; PULSE 65; RESP 16; TEMP 36.6; O2SAT 97
[2024-02-15 17:05] LABS: 25 Hydroxy Vitamin D 56 ng/mL (30-100)
== END 2024-03-01 23:59 | disposition home or self-care (01) ==
LOC: ONCMED 14:38
PROVIDERS: PCP Electrodiagnostic Medicine; Visit Provider Internal Medicine Rheumatology
DX: Z79.899 Other long term (current) drug therapy (principal); M81.0 Age-related osteoporosis without current pathological fracture
CPT/HCPCS: 80076; 82306; 82310; 82565; 85025; 96365; J3489

== ENCOUNTER 2025-01-06 07:58 | Outpatient (CLI) | payer OTHER, SELFPAY ==
--- NOTE | 2025-01-06 08:10 | MM_ITS ---
WS: [id number] SCREENING DIGITAL BREAST TOMOSYNTHESIS MAMMOGRAM WITH CAD HISTORY: SCREENING COMPARISON: None available. Bilateral CC and MLO with tomosynthesis and synthetic mammography submitted. Computer aided detection analyzed. Breast composition: The breasts are heterogeneously dense, which may obscure small masses. Asymmetry measures 4.7 mm seen best on the lateral projection of the RIGHT breast. This asymmetry central to the nipple. There are a few benign calcifications otherwise. No areas of distortion. MM/MM scr BI tomosynthesis [id number] IMPRESSION: BI-RADS: 0 - Incomplete: Need additional imaging evaluation FOLLOW UP: Need Additional Imaging RIGHT breast: Spot compression views (CC and MLO). True ML. Ultrasound to follo w if abnormality persists.
== END 2025-01-06 07:59 | disposition home or self-care (01) ==
LOC: RAD 08:00
PROVIDERS: PCP Electrodiagnostic Medicine; Visit Provider Electrodiagnostic Medicine
DX: Z12.31 Encounter for screening mammogram for malignant neoplasm of breast (principal); R92.333 Mammographic heterogeneous density, bilateral breasts; N64.89 Other specified disorders of breast; R92.1 Mammographic calcification found on diagnostic imaging of breast
CPT/HCPCS: 77063; 77067

== ENCOUNTER 2025-02-07 08:35 | Outpatient (CLI) | payer OTHER, SELFPAY ==
--- NOTE | 2025-02-07 08:45 | MM_ITS ---
WS: [id number] ADDITIONAL VIEWS RIGHT MAMMOGRAM WITH DIGITAL BREAST TOMOSYNTHESIS. RIGHT BREAST ULTRASOUND HISTORY: ABNORMAL MAMMOGRAM COMPARISON: 01/06/2025 RIGHT MAMMOGRAM: Spot compression views and true ML with digital breast tomosynthesis and SM. Breast composition: The breasts are heterogeneously dense, which may obscure small masses. Asymmetry nearly completely resolves in the upper outer quadrant of the RIGHT breast. There is dense fibroglandular tissue. No discrete mass identified. There are a few benign-appearing calcifications posterior to the nipple. Ultrasound to follow directed to the area of dense fibroglandular breast tissue. RIGHT BREAST ULTRASOUND 2-D and color Doppler imaging submitted. There are several small cysts within the dense fibroglandular band of tissue in the upper outer quadrant RIGHT breast. There is an additional lymph node measuring 1.0 x 0.4 x 0.9 cm at 10:00, 3 cm from the nipple. No solid mass. The lymph node corresponds to the mammographic abnormality that was visualized. MM/MM diag RT tomosynthesis [id number] IMPRESSION: BI-RADS: 2 - Benign FOLLOW UP: 1 Year Follow-up Return to annual screening mammography. Small breast cysts and lymph node in th e upper outer quadrant RIGHT breast.
== END 2025-02-07 08:36 | disposition home or self-care (01) ==
LOC: RAD 08:36
PROVIDERS: PCP Electrodiagnostic Medicine; Visit Provider Electrodiagnostic Medicine
DX: R92.8 Other abnormal and inconclusive findings on diagnostic imaging of breast (principal); N63.11 Unspecified lump in the right breast, upper outer quadrant; R92.323 Mammographic fibroglandular density, bilateral breasts; R92.1 Mammographic calcification found on diagnostic imaging of breast; R92.321 Mammographic fibroglandular density, right breast; N60.11 Diffuse cystic mastopathy of right breast
CPT/HCPCS: 76642; 77061; G0279

== ENCOUNTER 2025-03-01 07:53 | Oncology outpatient (recurring) (ONCR) | payer OTHER, SELFPAY ==
[2025-03-01 08:05] VITALS: BP 117/77; PULSE 91; RESP 16; TEMP 36.6; O2SAT 99
== END 2025-03-01 23:59 | disposition home or self-care (01) ==
LOC: ONCMED 07:53
PROVIDERS: PCP Electrodiagnostic Medicine; Visit Provider Electrodiagnostic Medicine
DX: M81.0 Age-related osteoporosis without current pathological fracture (principal); Z79.899 Other long term (current) drug therapy
CPT/HCPCS: 96365; J3489